=== PATIENT | female | born 1970 | race Caucasian/White ===

== ENCOUNTER 2017-03-23 09:12 | Emergency (ER) | payer BC ==
[2017-03-23] MEDS ORDERED: Ibuprofen TAB* 600 MG PO ONE (09:28)
[2017-03-23 09:30] VITALS: BP 138/88
--- NOTE | 2017-03-23 09:57 | RAD ---
Indication: Dislocated patella. 4 views of the right knee demonstrates no fracture or dislocation. No joint effusion is noted. There is a slight lateral patellar tilt. IMPRESSION: No joint effusion is noted currently. No fracture is noted.
[2017-03-23] MEDS ORDERED: Cyclobenzaprine TAB* 10 MG PO ONE (10:33)
--- NOTE | 2017-03-23 10:47 | UC ---
rian Rodriguez Timothy, scribed for Suzi Asencio MD on 03/23/17 at 1018 . Lower Extremity/Ankle HPI - HPI Summary HPI Summary: Joleen Trotter is a 46 yo female accompanied by her daughter, presenting to [facility] with 10/10 pain in her R knee since sometime between 03/21/17 and now, Pt is unsure as to the onset of her Sx. Pt has a Hx of such episodes of RLE kneecap dislocation. Pt state does not feel dislocated, but has pain on lateral aspect. PT states feels like gets caught. Pt She states she is unable to bear weight on her RLE second to pain. Pain increases with full flexion, extension. No direct trauma. No fall. Pt denies paresthesia or leg weakness. States in the past when this has occured, she was seen in the ED and given muscle relaxwers with food effect. No analgesia taken. No ice. Pt saw orthopedics > 10 years ago after first dislocation. At this time pt was told she had an injury to her meniscus. Pt has not seen since. Sx. Her MHx includes hysterectomy, kidney stones, arthritis. Pt medication list reviewed this visit. - History of Current Complaint Stated Complaint: KNEE INJURY Time Seen by Provider: 03/23/17 10:22 Hx Obtained From: Patient Hx Last Menstrual Period: hyterectomy Onset/Duration: Sudden Onset, Lasting Hours, Still Present Severity Initially: Moderate Severity Currently: Moderate Pain Intensity: 10 Pain Scale Used: 0-10 Numeric Aggravating Factor(s): Standing Alleviating Factor(s): Rest Able to Bear Weight: No - Allergies/Home Medications Allergies/Adverse Reactions: Allergies Allergy/AdvReac Type Severity Reaction Status Date / Time Pseudoephedrine Allergy Intermediate See Comment Verified 11/27/14 08:22 [From Kim] Adhesive Tape Allergy blistered Verified 11/27/14 08:22 Home Medications: Home Medications Control 03/23/17 [History] PMH/Surg Hx/FS Hx/Imm Hx Previously Healthy: Yes GI/ History: Kidney Stones - Surgical History Surgical History: Yes Surgery Procedure, Year, and Place: 12 YEARS AGO- HYSTERECTOMY WITH ABDOMINALPLASTY AND REPAIR OF HERNIA. . [facility] - Family History Known Family History: Positive: Cardiac Disease, Diabetes Negative: Hypertension - Social History Alcohol Use: Rare Substance Use Type: None Smoking Status (MU): Never Smoked Tobacco Review of Systems Constitutional: Negative Skin: Negative Eyes: Negative ENT: Negative Respiratory: Negative Cardiovascular: Negative Gastrointestinal: Negative Genitourinary: Negative Motor: Decreased ROM - second to pain Neurovascular: Negative Musculoskeletal: Other: - RLE knee pain Neurological: Negative Psychological: Negative All Other Systems Reviewed And Are Negative: Yes Physical Exam Triage Information Reviewed: Yes Appearance: Well-Appearing, No Pain Distress, Well-Nourished Vital Signs: Initial Vital Signs Temp 99 F 03/23/17 09:24 Pulse 87 03/23/17 09:24 Resp 20 03/23/17 09:24 BP 138/88 03/23/17 09:24 Pulse Ox 100 03/23/17 09:24 Vital Signs Reviewed: Yes Eyes: Positive: Conjunctiva Clear ENT: Positive: Hearing grossly normal Respiratory: Positive: No respiratory distress, No accessory muscle use Cardiovascular: Positive: Other: - 2+ DP, PT CBT <2 sec Musculoskeletal: Positive: Other: - + SLE wit full extension - pain lateral, superior aspesct of patella + flex - pain with flex > 90 same location No pain with direct palp of patella, medial joint line + mild TTP superior, lateral aspect of joint No ecchymosis + flex/ext ankle + great toe extension Neurological: Positive: Other: - + gross sensation throughout LE Psychological: Positive: Normal Response To Family Skin Exam: Normal Diagnostics - Radiology RLE Knee XR Xray Interpretation: No Acute Changes - IMPRESSION: No joint effusion is noted currently. No fracture is noted. Radiology Interpretation Completed By: Radiologist Lower Extremity Course/Dx - Course Course Of Treatment: Joleen Trotter is a 46 yo female presenting to [facility] with 10/ 10 RLE knee pain S/P a "popping sound", with a Hx of RLE kneecap dislocation. Pt with pain lateral superior of jointline. imaging neg fx, dislocation. will place mindy wrap. crutches. ice. flexeril (daughter present and driving) - precautions given. motrin/apap. ortho f/u. Pt comfortable and in agreement with plan - Differential Dx/Diagnosis Differential Diagnosis/HQI/PQRI: Dislocation, Strain Provider Diagnoses: RLE knee strain Discharge - Discharge Plan Condition: Stable Disposition: HOME Prescriptions: Cyclobenzaprine TAB* [Flexeril 10 MG TAB*] 5 mg PO Q8HR #15 tab MDD 3 Patient Education Materials: Crutch Instructions (ED), Knee Pain (ED), Ice Pack Application (ED) Forms: *Work Release Referrals: Tyshawn Moscoso MD [Medical Doctor] - Nino Blankenship MD [Medical Doctor] - If Needed Additional Instructions: - Okay to alternate ibuprofen (Advil, Motrin) 600mg and Tylenol every 3 hours for pain. Take with food. Do NOT take for more than 4-5 day s - Okay to take muscle relaxer as prescribed. Do NOT drive, operate machinery or drink alcohol while taking Flexeril - may cause drowsiness - wear mindy wrap for comfort and support - Use crutches until you can walk normally without a limp - Apply ice (wrapped in a towel) 20 minutes at a time, 2-3 times a day - elevate your leg to help with swelling and pain - Contact the orthopedic provider to schedule a follow-up appointment. Return to urgent care or the emergency department with any new symptoms or questions or concerns. The documentation as recorded by the rian schrader Timothy accurately reflects the service I personally performed and the decisions made by , Suzi Asencio MD.
== END 2017-03-23 10:54 | disposition home or self-care (01) ==
LOC: UCEAST 09:12
DX: S83.91XA Sprain of unspecified site of right knee, initial encounter (principal); X58.XXXA Exposure to other specified factors, initial encounter; Y93.9 Activity, unspecified; Y92.89 Other specified places as the place of occurrence of the external cause; Y99.9 Unspecified external cause status
CPT/HCPCS: 99213; A9270-GY; G0463